=== PATIENT | male | born 1990 | race Caucasian/White ===

== ENCOUNTER 2017-05-09 01:07 | Emergency (ER) | payer BC, OTHER ==
[2017-05-09] MEDS ORDERED: Lidocaine 1% 30 ML SDV INJECT ONE ×2 (01:11→02:17)
[2017-05-09] MEDS ORDERED: Lidocaine 1% 30 ML SDV ONE ×2 (01:24→01:55)
[2017-05-09 01:43] LABS: SODIUM,NA 140 mmol/L (135-145)
[2017-05-09 01:44] LABS: CHLORIDE,CL 104 mmol/L (101-111)
[2017-05-09] MEDS ORDERED: Acetaminophen/HYDROcodone 325-10 MG Tab PO ONE (02:17)
[2017-05-09] MEDS ORDERED: ceFAZolin 1 GM in Premix Bag 1 BAG IV ONE (02:17)
--- NOTE | 2017-05-09 02:17 | EDM.PDOC ---
ED HPI GENERAL MEDICAL PROBLEM - General Stated Complaint: CUT Time Seen by Provider: 05/09/17 02:12 Source of Information: Reports: Patient History Limitations: Reports: No Limitations - History of Present Illness INITIAL COMMENTS - FREE TEXT/NARRATIVE: accidentally cut right arm by broken window. Right Arm Pain Score (Numeric/FACES): 7 - Related Data Allergies Allergy/AdvReac Type Severity Reaction Status Date / Time No Known Allergies Allergy Verified 05/09/17 01:49 Home Meds: Home Meds . [No Known Home Meds] 10/31/13 [History] Past Medical History - Past Health History Medical/Surgical History: Denies Medical/Surgical History Social & Family History - Family History Family Medical History: Noncontributory - Tobacco Use Smoking Status *Q: Current Every Day Smoker Years of Tobacco use: 10 Packs/Tins Daily: 0.2 Second Hand Smoke Exposure: Yes - Caffeine Use Caffeine Use: Reports: Coffee, Energy Drinks - Alcohol Use Days Per Week of Alcohol Use: 2 - Recreational Drug Use Recreational Drug Use: No - Living Situation & Occupation Living situation: Reports: with Significant Other Occupation: Employed Review of Systems - Review of Systems Review Of Systems: ROS reveals no pertinent complaints other than HPI. ED EXAM, GENERAL - Physical Exam Exam: See Below Exam Limited By: No Limitations General Appearance: Alert, WD/WN, Mild Distress, Other (upset) Ears: Hearing Grossly Normal Throat/Mouth: Normal Voice, No Airway Compromise Head: Atraumatic Neck: Non-Tender, Full Range of Motion Respiratory/Chest: No Respiratory Distress Cardiovascular: Regular Rate, Rhythm GI/Abdominal: Soft, Non-Tender Extremities: Other (right forearm multiple lac', tender R/P, NV wnl, ) Neurological: Alert, Oriented, Normal Cognition, Normal Gait, No Motor/Sensory Deficits Psychiatric: Anxious, Depressed Mood, Tearful Skin Exam: Warm, Dry, Normal Color Lymphatic: No Adenopathy ED TRAUMA EXTREMITY PROCEDURES - Laceration/Wound Repair Right Arm Lac/Wound Length In cm: 20 (multiple lac' right forearm) Distal NVT: Neuro & Vascular Intact, No Tendon Injury Anesthetic Type: Local Local Anesthesia - Lidocaine (Xylocaine): 1% Plain Local Anesthetic Volume: 5cc Skin Prep: Chlorhexidine (Hibiciens) Saline Irrigation (cc's): 50 Exploration/Debridement/Repair: Wound Explored, Explored to Base, No Foreign Material Found Closed With: Sutures Suture Size: 3-0 Suture Type: Nylon, Interrupted Drain Placement: No Sterile Dressing Applied: Nurse Tetanus Status Addressed: Yes Complications: No Course - Vital Signs Last Recorded V/S: Last Vital Signs Temp 36.8 C 05/09/17 01:07 Pulse 137 H 05/09/17 01:07 Resp 20 05/09/17 01:07 BP 143/69 H 05/09/17 01:07 Pulse Ox 98 05/09/17 01:07 - Orders/Labs/Meds Labs: Laboratory Tests 05/09/17 05/09/17 Range/Units 01:10 01:10 WBC 12.5 H (5.0-10.0) 10^3/uL RBC 5.05 (4.6-6.2) 10^6/uL Hgb 15.8 (14.0-18.0) g/dL Hct 45.9 (40.0-54.0) % MCV 90.9 (80-100) fL MCH 31.3 (27.0-34.0) pg MCHC 34.4 (33.0-35.0) g/dL Plt Count 225 (150-450) 10^3/uL Neut % (Auto) 55.4 (42.2-75.2) % Lymph % (Auto) 36.5 (20.5-50.1) % [place] % (Auto) 7.1 (2-8) % Eos % (Auto) 0.8 L (1.0-3.0) % Baso % (Auto) 0.2 (0.0-1.0) % Sodium 140 (135-145) mmol/L Potassium 2.8 L (3.6-5.0) mmol/L Chloride 104 (101-111) mmol/L Carbon Dioxide 25.0 (21.0-31.0) mmol/L Anion Gap 13.8 BUN 8 (7-18) mg/dL Creatinine 0.7 (0.6-1.3) mg/dL Est Cr Clr Drug Dosing 173.31 mL/min Estimated GFR (MDRD) > 60 BUN/Creatinine Ratio 11.42 Glucose 113 H (74-105) mg/dL Calcium 8.9 (8.4-10.2) mg/dl Total Bilirubin 0.7 (0.2-1.0) mg/dL AST 24 (10-42) IU/L ALT 27 (10-60) IU/L Alkaline Phosphatase 55 (42-121) IU/L Total Protein 7.8 (6.7-8.2) g/dl Albumin 4.7 (3.2-5.5) g/dl Globulin 3.1 Albumin/Globulin Ratio 1.52 Meds: Medications Discontinued Medications Generic Name Dose Route Start Last Admin Trade Name Freq PRN Reason Stop Dose Admin Hydrocodone Bitart/Acetaminophen 1 tab 05/09/17 02:17 05/09/17 02:27 [place] 325-10 Mg PO 05/09/17 02:18 1 tab ONETIME ONE Administration Cefazolin Sodium/Dextrose 1 gm 50 mls @ 100 mls/hr 05/09/17 02:17 05/09/17 02 :26 / Premix IV 05/09/17 02:46 100 mls/hr ONETIME ONE Administration Lidocaine HCl 60 ml 05/09/17 01:11 05/09/17 02:28 Xylocaine-Mpf 1% INJECT 05/09/17 01:12 60 ml ONETIME ONE Administration Lidocaine HCl Confirm 05/09/17 01:24 05/09/17 02:28 Xylocaine-Mpf 1% Administered 05/09/17 01:25 Not Given Dose 60 ml .ROUTE .STK-MED ONE Lidocaine HCl Confirm 05/09/17 01:55 05/09/17 02:28 Xylocaine-Mpf 1% Administered 05/09/17 01:56 Not Given Dose 30 ml .ROUTE .STK-MED ONE Lidocaine HCl 30 ml 05/09/17 02:17 05/09/17 02:28 Xylocaine-Mpf 1% INJECT 05/09/17 02:18 30 ml ONETIME ONE Administration Departure - Departure Time of Disposition: 03:09 Disposition: Home, Self-Care 01 Condition: Good Clinical Impression: Laceration of forearm without complication Qualifiers: Encounter type: initial encounter Laterality: right Qualified Code(s): S51.811A - Laceration without foreign body of right forearm, initial encounter - Discharge Information Instructions: Laceration Care, Adult, [id number] Forms: ED Department Discharge Additional Instructions: 1) keep dressing clean dry covered 2) wound check Saturday 3) suture removal 10 days rx given; keflex 250mg qid x 40 vicodin 5/325mg bid prn x 12
== END 2017-05-09 03:00 | disposition home or self-care (01) ==
LOC: DL.ED 01:07
DX: S51.811A Laceration without foreign body of right forearm, initial encounter (principal); W45.8XXA Other foreign body or object entering through skin, initial encounter
CPT/HCPCS: 12005; 36415; 80053; 85025; 99283; A9270; J0690

== ENCOUNTER 2017-07-03 17:28 | Emergency (ER) | payer SELFPAY ==
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
== END 2017-07-03 20:07 ==
LOC: DL.ED 17:28
DX: R07.81 Pleurodynia (principal); M54.9 Dorsalgia, unspecified; F17.210 Nicotine dependence, cigarettes, uncomplicated; V20.5XXA Motorcycle passenger injured in collision with pedestrian or animal in traffic accident, initial encounter
CPT/HCPCS: 71101-RT; 72070; 72100; 99284

== ENCOUNTER 2019-05-17 21:40 | Emergency (ER) | payer OTHER ==
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
== END 2019-05-17 22:13 ==
LOC: DL.ED 21:40
DX: F19.10 Other psychoactive substance abuse, uncomplicated (principal)
CPT/HCPCS: 80305-QW; 99282